=== PATIENT | female | born 1950 | race African-American/Black ===

== ENCOUNTER 2020-05-04 10:19 | Outpatient (CLI) | payer MEDICARE, SELFPAY ==
--- NOTE | ~2020-05-04 | MR_ITS ---
MR breast BI wo/w con 05/05/2020 12:36 CDT INDICATION: TECHNIQUE: MRI of the breasts perform using standard protocol pre-and post IV contrast with the follo wing sequences: Axial T2 STIR, axial T1, axial vibrant T1 with fat suppression precontrast and multip hasic postcontrast. COMPARISON: Mammogram ultrasound dated 03/10/2020, from [facility] in [place], [place] FINDINGS: There are focal masses in the outer aspect of the right breast without abnormal contrast-en hancement, likely benign. There is mild background parenchymal enhancement. No enhancing lesions fol lowing contrast administration. No areas of enhancement meeting threshold criteria on CAD analysis. No evidence of signal abnormalities in the axillary or internal mammary node distributions. LEFT BREAST: No signal abnormalities on precontrast sequences. There is mild background parenchymal enhancement. There is a cluster of masses in the inner aspect of the left breast. In the upper outer quadrant at 10:00 there is a 1.9 x 0.3 x 1.2 cm mass 4.5 cm from the nipple with irregular margins an d rapid washout enhancement. In the upper outer quadrant, 6 cm from the nipple there is a 1.2 x 0.7 x 1 cm enhancing mass with rapid washout enhancement. In the lower outer quadrant, 6.2 cm from the nip ple, there is a 10 x 8 x 8 mm mass with rapid washout enhancement. In the lower outer quadrant, 7.8 c m from the nipple there is a 5 x 4 x 4 mm mass with rapid washout enhancement. In the lower central a spect of the left breast 3 cm from the nipple there is a 2 x 2 x 2 mm mass with rapid washout enhance ment. IMPRESSION: 1: Right breast: Negative. No evidence of malignancy. BI-RADS category 2. Recommend annual mammo graphy follow-up. 2: Left breast: Multiple abnormal left breast masses in the upper and lower outer quadrants of the l eft breast. Recommend second look left breast ultrasound for corresponding masses seen on MRI. Stereo tactic biopsy of regional calcifications in the upper outer quadrant of the left breast also recommen ded. BI-RADS CATEGORY 4-SUSPICIOUS ABNORMALITY RECOMMENDATION: Second look left breast ultrasound recommended for possible sites of ultrasound-guide d biopsy. Stereotactic biopsy of left breast calcifications recommended. Reviewed, dictated and finalized at location A. IMPRESSION: 1: Right breast: Negative. No evidence of malignancy. BI-RADS category 2. Recommend annual mammography follow-up. 2: Left breast: Multiple abnormal left breast masses in the upper and lower ou ter quadrants of the left breast. Recommend second look left breast ultrasound for corresponding masses seen on MRI. Stereotactic biopsy of regional calcifica tions in the upper outer quadrant of the left breast also recommended. BI-RADS CATEGORY 4-SUSPICIOUS ABNORMALITY RECOMMENDATION: Second look left breast ultrasound recommended for possible sit es of ultrasound-guided biopsy. Stereotactic biopsy of left breast calcificatio ns recommended.
[2020-05-04 11:04] LABS: Estimated Glomerular Filt Rate > 60
== END 2020-05-04 10:20 | disposition home or self-care (01) ==
LOC: ANHIMG 10:28
PROVIDERS: PCP Family Medicine; Visit Provider Surgery
DX: R92.8 Other abnormal and inconclusive findings on diagnostic imaging of breast (principal)
CPT/HCPCS: 36415; 77049; A9577; C8908

== ENCOUNTER 2020-05-12 08:42 | Outpatient (CLI) | payer MEDICARE, SELFPAY ==
--- NOTE | ~2020-05-12 | MMUS_ITS ---
US breast LT limited, MM post biopsy invasive LT, US breast bx add lesion LT, US breast biopsy LT w i mage 05/12/2020 11:50 (accession [id number]), 05/12/2020 12:09 (accession [id number]), 05/12/2020 11:53 (accession [id number]), 05/12/2020 11:53 (accession [id number]) EXAMINATION: US GUIDED NEEDLE BIOPSY WITH VACUUM ASSISTANCE DATE: 05/12/2020 12:14 CDT INDICATION: Multiple left breast masses identified by recent MRI. Ultrasound-guided core biopsy is r equested to evaluate for malignancy. TECHNIQUE AND FINDINGS: The risks and potential benefits of the procedure were discussed with the patient, and written inform ed consent was obtained. After sterile preparation of the left breast, 1% lidocaine was utilized for local anesthesia. 1% lidocaine with epinephrine was used for deep anesthesia. Multiple left breast masses are identified by ultrasound, the largest dominant masses being at 12:00, 3 cm from the nipple measuring 1 cm maximum dimension and 1:00, 4 cm from the nipple measuring 11 mm maximum dimension. There are multiple additional smaller masses in the lateral aspect of the left br east including masses at 1:00, 2:00, 3:00 and 4:00. A 10G vacuum-assisted biopsy gun needle was advan rafy through to the outer edge of the region of interest from a superior approach utilizing sonographi c guidance. A total of three tissue core samples were obtained through lesions at the 12 and 1:00 po sitions. An Inrad tissue marker clips were then placed at the biopsy site. Hemostasis was achieved. The patient tolerated procedure well and there was no evidence of immediate complication. The patien t was given verbal instructions partly is from the department. Left breast mammograms to document ti ssue marker clip placement. The marker at the 12:00 position not definitely visualized, consistent wi th failure to deploy. The marker at 1:00 is demonstrated. The tissue samples were submitted to surgic al pathology for histologic analysis.] IMPRESSION: 1. Successful ultrasound-guided vacuum-assisted biopsies of left breast masses with tissue marker pl acement. The tissue marker at the 12:00 position failed to deploy. Please refer to pathology report f or histologic analysis. Reviewed, dictated and finalized at location A. IMPRESSION: 1. Successful ultrasound-guided vacuum-assisted biopsies of left breast masses with tissue marker placement. The tissue marker at the 12:00 position failed t o deploy. Please refer to pathology report for histologic analysis. IMPRESSION: 1. Successful ultrasound-guided vacuum-assisted biopsies of left breast masses with tissue marker placement. The tissue marker at the 12:00 position failed t o deploy. Please refer to pathology report for histologic analysis. IMPRESSION: 1. Successful ultrasound-guided vacuum-assisted biopsies of left breast masses with tissue marker placement. The tissue marker at the 12:00 position failed t o deploy. Please refer to pathology report for histologic analysis.
--- NOTE | ~2020-05-12 | MM_ITS ---
EXAMINATION: MM stereotactic bx LT, MM post biopsy diagnostic LT, MM stereotactic specimen LT DATE: Dixon Bettencourt M.D. INDICATION: Abnormal calcifications in the left breast. Stereotactic core biopsy is requested evalua te for malignancy.] TECHNIQUE AND FINDINGS: The risks and potential benefits of the procedure were discussed with the patient and written informe d consent was obtained. The patient was placed in the prone position clustered at the table with the left breast in craniocaudal compression, and the area of interest was localized and targeted utilizi ng digital imaging with stereotaxis. After sterile preparation of the skin, 1% lidocaine was utilized for local anesthesia at the skin pun cture site and 1% lidocaine with epinephrine was utilized for deeper local anesthesia/is about the bi opsy site. A 9G [employer] vacuum assisted biopsy needle was advanced to the level of the calcification o f interest from a cephalad approach utilizing stereotactic guidance and a total of 6 tissue core biop sies were obtained. A specimen radiograph demonstrates that the calcifications of interest are included within the tissue cores. A tissue marker clip was then placed at the biopsy site. The needle was removed and hemosta sis was achieved. The patient tolerated the procedure well and there is no evidence of significant i mmediate complication. The patient was given verbal as well as written postprocedural instructions p rior to discharge from the department. Tissue cores were submitted to surgical pathology for histolo gic analysis. A 2-view left unilateral digital mammogram was obtained post procedure and this demonstrates that the tissue marker clip is in expected position.] IMPRESSION: 1. Successful stereotactic biopsy of calcifications in the upper outer quadrant of the left breast, followed by tissue marker clip placement. Please refer to pathology report for histologic analysis. Reviewed, dictated and finalized at location A. IMPRESSION: 1. Successful stereotactic biopsy of calcifications in the upper outer quadran t of the left breast, followed by tissue marker clip placement. Please refer t o pathology report for histologic analysis. IMPRESSION: 1. Successful stereotactic biopsy of calcifications in the upper outer quadran t of the left breast, followed by tissue marker clip placement. Please refer t o pathology report for histologic analysis.
== END 2020-05-12 08:43 | disposition home or self-care (01) ==
PROVIDERS: PCP Family Medicine; Visit Provider Surgery
DX: R92.8 Other abnormal and inconclusive findings on diagnostic imaging of breast (principal); C50.412 Malignant neoplasm of upper-outer quadrant of left female breast
CPT/HCPCS: 19081; 19083; 19084; 76642; 77065; 88305; 88342; A4648

== ENCOUNTER 2020-05-15 00:48 | Outpatient (CLI) | payer MEDICARE, SELFPAY ==
[2020-05-15 18:34] LABS: SARS-CoV-2 RNA PCR Negative
== END 2020-05-15 00:49 | disposition home or self-care (01) ==
LOC: ANHCOVIDDT 00:49
PROVIDERS: PCP Family Medicine; Visit Provider Surgery
DX: Z01.812 Encounter for preprocedural laboratory examination (principal); Z20.828 Contact with and (suspected) exposure to other viral communicable diseases
CPT/HCPCS: 87635; C9803; U0003

== ENCOUNTER 2020-05-15 09:28 | Outpatient (CLI) | payer MEDICARE, SELFPAY ==
--- NOTE | 2020-05-15 10:27 | ECG_ITS ---
Measurements Intervals [place] Rate: 56 P: 72 NH: 142 QRS: 44 QRSD: 78 T: 54 QT: 368 QTc: 358 Interpretive Statements SINUS BRADYCARDIA BORDERLINE ECG Electronically Signed On 05-15-2020 10:53:39 CDT by Jj Hummel D.O.
[2020-05-15 10:53] LABS: Basophils Percent Auto 0.4 % (0.2-1.2); Eosinophils Absolute Auto 0.1 K/mm3 (0-0.3); Eosinophils Percent Auto 2.4 % (0-4.4); Hematocrit 37.3 % (37.0-47.0); Hemoglobin 11.8 g/dL (12.0-15.0); Lymphocytes Percent Auto 47.6 % (18.3-44.2); Mean Corpuscular HGB Conc 31.6 g/dl (32-36); Mean Corpuscular Hemoglobin 28.7 pg (26-34); Mean Corpuscular Volume 90.8 fl (80-100); Mean Platelet Volume 12.9 fl (7.4-10.4); Monocytes Absolute Auto 0.2 K/mm3 (0.1-0.6); Monocytes Percent Auto 7.5 % (2.6-8.5); Neutrophils Absolute Auto 1.1 K/mm3 (1.3-6.7); Neutrophils Percent Auto 42.1 % (45.5-73.1); Platelet Count Result 186 k/mm3 (150-375); Red Blood Count 4.11 M/mm3 (4.2-5.4); Red Cell Distribution Width 12.4 % (11.5-14.5); White Blood Count 2.5 K/mm3 (4.5-10.0)
[2020-05-15 11:08] LABS: Alanine Aminotransferase 14 U/L (4-35); Albumin Level 4.6 g/dL (3.5-5.1); Alkaline Phosphatase 65 U/L (38-126); Anion Gap 7 mmol/L (8-16); Aspartate Amino Transferase 27 U/L (14-36); Bilirubin,Total 0.3 mg/dL (0.2-1.3); Blood Urea Nitrogen 12 mg/dL (7-17); Calcium 9.5 mg/dL (8.4-10.2); Carbon Dioxide 29 mmol/L (22-30); Chloride 102 mmol/L (98-107); Estimated Glomerular Filt Rate > 60; Glucose 96 mg/dL (65-105); Potassium 4.4 mmol/L (3.4-5.0); Sodium 138 mmol/L (137-145)
== END 2020-05-15 09:29 | disposition home or self-care (01) ==
LOC: ANHSURGERY 09:33
PROVIDERS: PCP Family Medicine; Visit Provider Surgery
DX: C50.912 Malignant neoplasm of unspecified site of left female breast (principal)
CPT/HCPCS: 36415; 80053; 85025; 86850; 86900; 86901; 93005

== ENCOUNTER 2020-05-18 01:24 | Day surgery (SDC) | payer MEDICARE, SELFPAY ==
[2020-05-15 09:53] VITALS: BP 115/70; PULSE 60; RESP 16; TEMP 36.7; O2SAT 98; BMI 23.2
[2020-05-18] VITALS (10 sets, daily range): BP systolic 99–130; BP diastolic 58–69; PULSE 61–73; RESP 12–20; TEMP 36.1–36.6; O2SAT 100
--- NOTE | ~2020-05-18 | NM_ITS ---
EXAMINATION: NM sentinel node inject only DATE: 05/18/2020 08:19 INDICATION: Left breast cancer TECHNIQUE: 1.099 mCi Tc-99m filtered sulfur colloid was injected in 4 aliquots in the anterior breast near the areola. No images were obtained. IMPRESSION: 1. Left breast sentinel lymph node radiopharmaceutical injection. Reviewed, dictated and finalized at location A.
--- NOTE | 2020-05-18 07:05 | P.PNAN_ITS ---
Anes - Initial Pre Proc Eval Procedure: Operation Date: 05/18/20 08:30 Proposed Procedures p Simple Mastectomy Left Breast with [place] Lymph Node Biopsy, Possible Left Axillary Dissection with Injection of Lymphazurin Blue Dye - Will Garcia MD Date/Time: 05/18/20 07:05 Surgeon: Will Garcia MD Pre Op Diagnosis: invasive ductal CA left breast Patient Data Age: 69 Gender: F Height: 5 ft 5 in Weight: 63.5 kg Last Vital Signs Temp 36.7 C 05/15/20 09:53 Pulse 60 05/15/20 09:53 Resp 16 05/15/20 09:53 BP 115/70 05/15/20 09:53 Pulse Ox 98 05/15/20 09:53 Allergies Allergy/AdvReac Type Severity Reaction Status Date / Time indomethacin Allergy Mild Rash Verified 05/18/20 06:28 meloxicam Allergy Mild Rash Verified 05/18/20 06:28 Home Medications Medication Instructions Recorded Confirmed Type cyanocobalamin (vitamin B-12) 1,000 mcg PO DAILY 05/15/20 05/18/20 History Patient hx anesthesia problems: none Family hx anesthesia problems: none PMFSH Past Medical History Medical History (Updated 05/18/20 @ 07:07 by Satya Patterson MD) History of alcohol abuse (Unknown) Infiltrating ductal carcinoma of left female breast (~05/2020) Panic attacks Surgical History Surgical History History of Family History Family History Sibling Breast cancer Social History Social History Smoking status: Never smoker Alcohol intake: former Alcohol use details: 1 5TH & 1 P[employer] DAILY X 22 YEARS. 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 Questions were solicited and answers provided to the satisfaction of the patient/family/POA.
--- NOTE | 2020-05-18 07:58 | WPDHPUPDATE1 ---
History and Physical Update Update Date/Time: 05/18/20 07:58 History and Physical has been reviewed, including an updated exam of the patient. There are no changes in the patient's condition. Risks, benefits, and alternatives have been discussed and questions answered. Patient agrees to proceed with procedure.
[2020-05-18] MEDS: LACTATED RINGERS 1,000 ML 30 ML IV CONT ×2 (08:02→10:59)
[2020-05-18] MEDS: ceFAZolin 2 GM/D5W 50 ML 2 GM/50 ML BAG IVPB (08:12)
[2020-05-18] MEDS: ISOSULFAN BLUE 1% INJ 5 ML VIAL SUB-Q (08:39)
[2020-05-18] MEDS: BUPIVACAINE/EPINEPHRINE 0.25% 50 ML VIAL 10 ML INFILTRATE (08:40)
--- NOTE | 2020-05-18 09:32 | SUR.OPER ---
SENTINEL LYMPH NODE # 1 LEFT BREAST SENT WITH MAGALI DAY. RECEIVED IN PATHOLOGY BY JOSEPHINE
--- NOTE | 2020-05-18 09:42 | SUR.OPER ---
SENTINEL LYMPH NODE # 2 SENT WITH MAGALI DAY AND RECEIVED IN PATHOLOGY BY BENITO
--- NOTE | 2020-05-18 10:41 | SUR.OPER ---
LEFT BREAST SPECIMEN SENT WITH MAGALI DAY AND RECEIVED IN PATHOLOGY BY JOSEPHINE
--- NOTE | 2020-05-18 11:10 | PM.PROC ---
Procedure Note - Detailed Date of procedure: 05/18/20 Pre-op diagnosis: invasive ductal CA left breast Post-op diagnosis: same Procedure performed: Simple Left Mastectomy [place] Lymph node biopsy X 2 on the left Dye injection for [place] lymph node biopsy Description of procedure: The patient was seen pre-operatively in the holding area, and I marked the patient on the operative side. The left. She was brought to the operating room and anesthesia delivered. She was prepped and draped in the usual sterile fashion. The arm on this side was placed into a stockinette and wrapped with a [place]. It was then draped into the field sterile. A timeout was performed confirming patient and site of surgery. Then after inspection of the breast I carefully used Lymphazarin blue, 5 cc, to inject 1 cc in the subcuticular area the areola at the edge of the areola at [address] This was done with a 25 gauge needle and then the breast was massaged for 1 minute. Following this the mastectomy incision was outlined with an indelible ink marker. A long ellipse transversely across the chest was outlined with the nipple the lower center of the ellipse. I included in the excision the small scar from the recent biopsy which was approximately 4 cm above and slightly lateral to the nipple areolar margin. The upper flap was then incised and raised with Bovie cautery in standard fashion all the way to the upper margins of the breast tissue where skin was coming off of the upper portions of the pectoralis major muscle. Once the skin flap was adequately raised I cut through the subcutaneous tissues down to the pectoralis major fascia along this entire upper flap from medial to lateral coming out into the axilla at the lateral edge of the pectoralis major muscle. Then through this upper flap incision we began searching for the sentinel lymph nodes in the left axilla. Starting at the edge of the pectoralis major the tissues were dissected toward the area of the second intercostal-brachail nerve with electrocautery and the clavipectoral fascia was incised with electrocautery. Using the sentinel lymph node probe, the sentinel lymph node was identified and the count in vivo was as high as 600 . I carefully dissected out what appeared to be a lymph node that was marked with high counts and also with a small amount blue green lymphatics heading directly to it. There was some blue green dye that appeared to be in the lymph node in the center of the approximately 2 x 1 cm area of the axillary tissue removed. Then an ex vivo 10- second count of 9001 was recorded. The count in the axilla after removing this lymph node was between 120 and 50, for background noise. The sentinel lymph node was sent fresh for pathologic evaluation and touch preps. Then again using the probe I then found another area where the counts registered as high as 300 counts and the background being almost 0. Therefore, I searched a little bit further and found a smaller 2nd sentinel lymph node that was somewhat bluish in color. This was little bit deeper in the axilla. This one was also excised using clips and cautery. This was also sent to pathology. At the end of our dissection in the axilla there were no areas of counts greater than 50. We then went ahead and started to raise the inferior flap and the skin was raised in standard fashion along the entire inferior margin. I came down onto fascia along the upper edges of the attachments of the rectus abdominus muscle on the left. Following this as we waited for pathology to tell us about the touch preps of the sentinel lymph nodes, we began raising the breast off the chest wall taking the anterior pectoralis fascia with us leaving the pectoralis major muscle behind. This was rotated off the pectoralis major all the way into the axilla and a little bit of the axillary tail was excised also. The specimen was laid on a towel and a short suture was placed supe
--- NOTE | 2020-05-18 13:01 | SUR.PHASEII ---
PT DRESSING; WAITING FOR HER RIDE.
== END 2020-05-18 13:30 | disposition home or self-care (01) ==
PROVIDERS: PCP Family Medicine; Visit Provider Surgery
PROC: (CPT 19301; principal; 2020-05-18 08:30)
DX: C50.912 Malignant neoplasm of unspecified site of left female breast (principal); Z17.0 Estrogen receptor positive status [ER+]; L82.1 Other seborrheic keratosis; Z90.12 Acquired absence of left breast and nipple; L90.5 Scar conditions and fibrosis of skin
CPT/HCPCS: 19301; 38525; 36415; 38792; 80053; 85025; 86850; 86900; 86901; 87635; 88305; 88307; 88333; 93005; A9520; C1713; C9803; J0690; J1100; J1170; J2250; J2370; J2405; J2704; J3010; J7120; U0003

== ENCOUNTER 2022-07-21 09:49 | Outpatient (CLI) | payer MEDICARE, SELFPAY ==
[2022-07-21 10:04] LABS: Basophils Percent Auto 0.7 % (0.2-1.2); Eosinophils Absolute Auto 0.1 K/mm3 (0-0.3); Eosinophils Percent Auto 3.8 % (0-4.4); Hematocrit 34.6 % (37.0-47.0); Lymphocytes Absolute Auto 1.06 K/mm3 (0.9-3.2); Lymphocytes Percent Auto 36.9 % (18.3-44.2); Mean Corpuscular HGB Conc 31.8 g/dl (32-36); Mean Corpuscular Hemoglobin 29.3 pg (26-34); Mean Corpuscular Volume 92.3 fl (80-100); Mean Platelet Volume 12.3 fl (7.4-10.4); Monocytes Absolute Auto 0.2 K/mm3 (0.1-0.6); Monocytes Percent Auto 7.7 % (2.6-8.5); Neutrophils Absolute Auto 1.5 K/mm3 (1.3-6.7); Neutrophils Percent Auto 50.9 % (45.5-73.1); Platelet Count Result 157 k/mm3 (150-375); Red Blood Count 3.75 M/mm3 (4.2-5.4); Red Cell Distribution Width 12.6 % (11.5-14.5); White Blood Count 2.9 K/mm3 (4.5-10.0)
[2022-07-21 10:08] LABS: Blood Urea Nitrogen 11 mg/dL (8-26); Carbon Dioxide 27 mmol/L (22-30); Chloride 104 mmol/L (98-109); Estimated Glomerular Filt Rate > 60; Glucose 87 mg/dL (70-105); Ionized Calcium (POC) 1.28 mmol/L (1.11-1.31); Potassium 4.2 mmol/L (3.5-4.9); Sodium 144 mmol/L (138-146)
[2022-07-21 10:51] LABS: Alanine Aminotransferase 32 U/L (6-35); Albumin Level 4.6 g/dL (3.5-5.1); Alkaline Phosphatase 74 U/L (38-126); Anion Gap 12 mmol/L (8-16); Aspartate Amino Transferase 38 U/L (14-36); Bilirubin,Total 0.6 mg/dL (0.2-1.3); Blood Urea Nitrogen 12 mg/dL (7-17); Calcium 9.3 mg/dL (8.4-10.2); Carbon Dioxide 28 mmol/L (22-30); Chloride 105 mmol/L (98-107); Estimated Glomerular Filt Rate > 60; Glucose 89 mg/dL (65-110); Potassium 4.1 mmol/L (3.4-5.0); Sodium 145 mmol/L (137-145)
[2022-07-28 07:07] LABS: CA 15-3 <5 U/mL (<32)
== END 2022-07-21 09:50 | disposition home or self-care (01) ==
LOC: ANHLAB 09:51
PROVIDERS: PCP Family Medicine; Visit Provider Internal Medicine Hematology & Oncology
DX: C50.812 Malignant neoplasm of overlapping sites of left female breast (principal); Z17.0 Estrogen receptor positive status [ER+]
CPT/HCPCS: 36415; 80047; 80053; 85025; 86300